=== PATIENT | male | born 2000 | race Caucasian/White ===

== ENCOUNTER 2021-08-01 19:09 | Emergency (ER) | payer BC ==
[~2021-08-01] VITALS: Ht 177.8 cm; Wt 81.8 kg
[2021-08-01 19:19] VITALS: BP 137/73
== END 2021-08-01 20:59 | disposition home or self-care (01) ==
LOC: ER 19:11
DX: U07.1 COVID-19 (principal); R68.83 Chills (without fever); Z88.1 Allergy status to other antibiotic agents
CPT/HCPCS: 99281